=== PATIENT | male | born 2000 | race Two or more races ===

== ENCOUNTER 2022-05-11 20:10 | Emergency (ER) | payer OTHER ==
[~2022-05-11] VITALS: Ht 172.7 cm; Wt 72.5 kg
[2022-05-11 20:10] VITALS: BP 124/84
[2022-05-12] MEDS ORDERED: LIDOCAINE 1% HCL (LOCAL ANESTH.) INJ 20ML MDV ONE (01:35)
[2022-05-12] MEDS ORDERED: CYCL-837 PO (02:33)
[2022-05-12] MEDS ORDERED: IBUP600T28 PO (02:33)
== END 2022-05-12 00:57 | disposition home or self-care (01) ==
LOC: ER 20:14
DX: S01.112A Laceration without foreign body of left eyelid and periocular area, initial encounter (principal); S06.0X0A Concussion without loss of consciousness, initial encounter; M54.2 Cervicalgia; V89.2XXA Person injured in unspecified motor-vehicle accident, traffic, initial encounter; Y93.89 Activity, other specified; Y92.89 Other specified places as the place of occurrence of the external cause; Y99.8 Other external cause status
CPT/HCPCS: 12011; 70450; 70486; 71250; 72125; 74176